=== PATIENT | female | born 1995 ===

== ENCOUNTER 2022-05-03 08:36 | Outpatient (CLI) | payer OTHER | END 2022-05-03 10:45 | disposition home or self-care (01) | LOC: PRENATAL 08:36 | PROVIDERS: ATTEND Obstetrics & Gynecology Maternal & Fetal Medicine | DX: O35.0XX0 Maternal care for (suspected) central nervous system malformation in fetus, not applicable or unspecified (principal); O35.3XX0 Maternal care for (suspected) damage to fetus from viral disease in mother, not applicable or unspecified; O34.219 Maternal care for unspecified type scar from previous cesarean delivery; Z3A.21 21 weeks gestation of pregnancy ==

== ENCOUNTER 2022-06-14 09:22 | Outpatient (CLI) | payer OTHER | END 2022-06-14 10:25 | disposition home or self-care (01) | LOC: PRENATAL 09:22 | PROVIDERS: ATTEND Obstetrics & Gynecology Maternal & Fetal Medicine | DX: O09.90 Supervision of high risk pregnancy, unspecified, unspecified trimester (principal); O26.849 Uterine size-date discrepancy, unspecified trimester; O34.219 Maternal care for unspecified type scar from previous cesarean delivery; Z3A.27 27 weeks gestation of pregnancy ==